=== PATIENT | female | born 1955 | race Caucasian/White ===

== ENCOUNTER 2016-08-01 22:08 | Inpatient (IN) | payer MEDICARE, OTHER ==
[~2016-08-01] VITALS: Ht 160 cm; Wt 62.6 kg
[~2016-08-01 22:08] MED LIST: SIMV20TA2 PO
--- NOTE | 2016-08-01 22:15 | NUR ---
PT PRESENTS TO ER C/O MIDSTERNAL CHEST PRESSURE RADIATING TO L ARM X1HR PADDER CUSHION, ALSO C/O JOSÉ LEG NUMBNESS. PT APPEARS VERY ANXIOUS, EYES WATERY, BREATHING DEEPLY, SHAKY. DENIES SOB OR RESP DISTRESS. SKIN WARM NONDIAPHORETIC. APPEARS IN NO ACUTE DISTRESS. IN ER BED 09 ON MONITOR.
--- NOTE | 2016-08-01 23:36 | NUR ---
PT AMBULATED TO RESTROOM WITH STEADY GAIT. PT REPORTS SHE FEELS "MUCH BETTER" NOW.
[2016-08-02] MEDS ORDERED: NITROGLYCERIN PACKET 1 GM PACKET TD ONE (00:30)
[2016-08-02] MEDS ORDERED: LORAZEPAM INJ 2 MG/ML VIAL IV ONE (00:30)
[2016-08-02] MEDS ORDERED: ASPIRIN 81 MG TAB.CHEW PO ONE (00:30)
[2016-08-02] MEDS ORDERED: NITROGLYCERIN 0.4 MG/TAB BOTTLE SL ONE (00:30)
[2016-08-02] MEDS ORDERED: NITROGLYCERIN PACKET 1 GM PACKET ONE (00:39)
[2016-08-02] MEDS ORDERED: ASPIRIN 81 MG TAB.CHEW ONE (00:39)
[2016-08-02] MEDS ORDERED: LORAZEPAM INJ 2 MG/ML VIAL ONE (00:47)
[2016-08-02 00:51] LABS: BASOPHILS # (AUTO) 0.1 /CMM (0.0-0.2); BASOPHILS % (AUTO) 0.9 % (0.0-2.0); EOSINOPHILS # (AUTO) 0.2 /CMM (0.0-0.7); EOSINOPHILS % (AUTO) 2.9 % (0.0-6.0); HEMATOCRIT 34 % (33-45); HEMOGLOBIN 11.1 g/dL (11.5-14.8); LYMPHOCYTES # (AUTO) 2.5 /CMM (0.8-4.8); LYMPHOCYTES % (AUTO) 40.4 % (20.0-44.0); MEAN CORPUSCULAR HEMOGLOBIN 26 PG (26.0-33.0); MEAN CORPUSCULAR HGB CONC 32 g/dl (31.0-36.0); MEAN CORPUSCULAR VOLUME 79 fL (82-100); MONOCYTES # (AUTO) 0.3 /CMM (0.1-1.30); MONOCYTES % (AUTO) 4.4 % (2.0-12.0); NEUTROPHILS # (AUTO) 3.2 /CMM (1.8-8.9); NEUTROPHILS % (AUTO) 51.4 % (43.0-81.0); PLATELET COUNT (AUTO) 278 /CMM (150-450); RDW COEFFICIENT OF VARIATION 13.8 (11.5-15.0); RED BLOOD CELL COUNT(AUTO) 4.35 MIL/uL (4.0-5.2); WHITE BLOOD COUNT (AUTO) 6.3 K/uL (4.3-11.0)
--- NOTE | 2016-08-02 01:01 | NUR ---
CALLED NURSING SECTION CHIEF FOR TELE BED
[2016-08-02 01:02] LABS: CALCIUM, SERUM 8.1 mg/dL (8.5-10.1); CARBON DIOXIDE 27 mmol/L (21-32); CHLORIDE 108 mmol/L (98-107); CREATININE 0.7 mg/dL (0.6-1.3); GFR 85 mL/min (>60); GLUCOSE 111 mg/dL (74-106); POTASSIUM 3.2 mmol/L (3.5-5.1); SODIUM SERUM 141 mmol/L (136-145); UREA NITROGEN, BLOOD 9 mg/dL (7-18)
--- NOTE | 2016-08-02 01:03 | NUR ---
IV ACCESS ESTABLISHED. ASPIRIN, LORAZEPAM, AND NITRO PASTE ADMINISTERED ORDERED. PT DENIES CP, TIGHTNESS, OR PRESSURE AT THIS TIME. NAD NOTED. MD NOTIFIED. PER MD, DO NOT ADMINISTER NITRO SL UNLESS PT C/O CP.
[2016-08-02 01:13] LABS: TROPONIN I < 0.017 ng/mL (0.00-0.056)
[2016-08-02 01:14] LABS: ALANINE AMINOTRANSFERASE 19 U/L (12-78); ALBUMIN 3.3 g/dL (3.4-5.0); ALKALINE PHOSPHATASE 59 U/L (46-116); ASPARTATE AMINOTRANSFERASE 17 U/L (15-37); B-TYPE NATRIURETIC PEPTIDE 122 PG/ML (0-125); BILIRUBIN,TOTAL 0.2 mg/dL (0.2-1.0); TOTAL PROTEIN, SERUM 6.7 g/dL (6.4-8.2)
--- NOTE | 2016-08-02 01:33 | NUR ---
DR ROBERT ON PHONE WITH LARA SOUSA NP
--- NOTE | 2016-08-02 01:34 | NUR ---
REPORT GIVEN TO ODETTE HADDAD FOR ADMISSION.
--- NOTE | 2016-08-02 01:34 | NUR ---
RN REPORT RECEIVED REPORT FROM [facility] MANUFA[employer]URED BUILDINGS REPAIRER FOR CONTINUITY OF CARE. AWAITING PT ARRIVAL.
--- NOTE | 2016-08-02 01:43 | NUR ---
RN INITIAL NOTE RECEIVED PT IN NO ACUTE DISTRESS IN BED. PT IS A/O X 4 AND ABLE TO MAKE NEEDS KNOWN. PT IS ON RA AND TOLERATING WELL WITH O2 SAT @ 98%. PT NOT C/O ANY SOB, DIFFICULTY BREATHING OR CHEST PAIN. PT STATED SHE HAS A HEADACHE. PAIN MANAGEMENT INITIATED AND CARRIED OUT. PT HAS LFA 20G THAT IS CLEAN DRY INTACT AND PATENT WITH SALINE FLUSH. BED IN LOW LOCK POSITION WITH RIALS UP X 2. CALL LIGHT WITHIN REACH AND ALL SAFETY MEASURES ENSURED AND CARRIED OUT. WILL CONTINUE TO MONITOR PT.
--- NOTE | 2016-08-02 01:43 | NUR ---
PT TRANSPORTED TO TELE1 IN STABLE CONDITION VIA ACLS PROTOCOL
[2016-08-02 01:55] VITALS: BP 139/81
[2016-08-02] MEDS ORDERED: ONDANSETRON HCL/PF 4 MG/2 ML VIAL IVP PRN (02:30)
[2016-08-02] MEDS ORDERED: NITROGLYCERIN 0.4 MG/TAB BOTTLE SL PRN (02:30)
[2016-08-02] MEDS ORDERED: Z GUARD REMEDY 2 OZ OINT TP PRN (02:30)
[2016-08-02] MEDS ORDERED: MAG HYDROX/AL HYDROX/SIMETH 30 ML UDC PO PRN (02:30)
[2016-08-02] MEDS ORDERED: MAGNESIUM HYDROXIDE 30 ML UDC PO PRN (02:30)
[2016-08-02] MEDS ORDERED: HYDROCODONE/APAP 5/325MG 1 EACH TABLET ONE (02:44)
[2016-08-02] MEDS: HYDROCODONE/APAP 5/325MG 1 EACH TABLET PO PRN ×4 (02:48→18:31)
--- NOTE | 2016-08-02 06:40 | NUR ---
RN CLOSING NOTE PT REMAINS IN NO ACUTE DISTRESS IN BED. PT DID NOT HAVE ANY SIGNIFICANT CHANGE IN CONDITION. WILL ENDORSE TO AM RN FOR CONTINUITY OF CARE.
--- NOTE | 2016-08-02 07:00 | NUR ---
RN NOTE RECEIVED PT ON BED, A/O X 4 AND ABLE TO MAKE NEEDS KNOWN, ON RA NO SOB NOTED, DENIES CHEST PAIN , LFA 20G SITE CLEAN DRY INTACT . BED IN LOW LOCK POSITION WITH RIALS UP X 2. CALL LIGHT WITHIN REACH AND ALL SAFETY MEASURES ENSURED ,CONTINUE TO MONITOR PT. CLOSELY AND NOTIFY MD FOR ANY SIGNIFICANT CHANGES .
[2016-08-02 08:00] VITALS: BP 111/65
[2016-08-02] MEDS ORDERED: PANTOPRAZOLE 40 MG TABLET.DR PO SCH (08:31)
[2016-08-02] MEDS: ASPIRIN 81 MG TAB.CHEW PO SCH (08:37)
[2016-08-02] MEDS: ACETAMINOPHEN 325 MG TABLET PO PRN ×2 (08:37→20:54)
[2016-08-02] MEDS ORDERED: ASPIRIN 81 MG TAB.CHEW PO SCH (10:30)
[2016-08-02] MEDS: CARVEDILOL 12.5 MG TABLET PO SCH ×2 (10:39→20:54)
[2016-08-02 10:56] LABS: THYROID STIMULATING HORMONE 1.18 uIU/mL (0.358-3.74)
[2016-08-02 11:06] LABS: MAGNESIUM 1.8 mg/dL (1.8-2.4); PHOSPHORUS 3.9 mg/dL (2.5-4.9)
[2016-08-02] MEDS: POTASSIUM CHLORIDE 20 MEQ TAB.PRT.SR PO SCH ×3 (11:38→13:27)
[2016-08-02 12:00] VITALS: BP 126/64
--- NOTE | 2016-08-02 14:00 | NUR ---
RN NOTES CONSENT FOR STRESS TEST OBTAINED, PT NOTIFIED REGARDING NPO AFTER MN FOR STRESS TEST .
[2016-08-02 16:00] VITALS: BP 126/64
[2016-08-02] MEDS ORDERED: SIMVASTATIN 20 MG TABLET PO SCH (18:00)
--- NOTE | 2016-08-02 19:02 | NUR ---
RN NOTES PT UP AND WALKING IN THE ROOM ,VSS STABLE , TINO ANY CHEST PAIN AT THIS TIME, MEDICATED PER MD ORDER, NO SIGNIFICANT CHANGES NOTED ON THIS SHIFT .
--- NOTE | 2016-08-02 19:30 | NUR ---
MS HADDAD INITIAL NOTE RECEIVED REPORT DANIEL HADDAD. PT IN BED. A/A/O X4. LUNG SOUNDS CLEAR. BOWEL SOUNDS PRESENT. IV PATENT AND INTACT. PULSES PRESENT. BRP. BED IN LOW LOCKED POSITION. CALL LIGHT WITHIN REACH. WILL CONTINUE TO MONITOR.
[2016-08-02 20:00] VITALS: BP 179/95
[2016-08-03 04:00] VITALS: BP 135/75
[2016-08-03] MEDS: HYDROCODONE/APAP 5/325MG 1 EACH TABLET PO PRN (05:07)
[2016-08-03 07:13] LABS: BASOPHILS % (AUTO) 0.7 % (0.0-2.0); EOSINOPHILS # (AUTO) 0.1 /CMM (0.0-0.7); EOSINOPHILS % (AUTO) 2.4 % (0.0-6.0); HEMATOCRIT 37 % (33-45); HEMOGLOBIN 11.6 g/dL (11.5-14.8); LYMPHOCYTES # (AUTO) 2.4 /CMM (0.8-4.8); LYMPHOCYTES % (AUTO) 40.6 % (20.0-44.0); MEAN CORPUSCULAR HEMOGLOBIN 25 PG (26.0-33.0); MEAN CORPUSCULAR HGB CONC 32 g/dl (31.0-36.0); MEAN CORPUSCULAR VOLUME 79 fL (82-100); MONOCYTES # (AUTO) 0.3 /CMM (0.1-1.30); MONOCYTES % (AUTO) 4.3 % (2.0-12.0); NEUTROPHILS # (AUTO) 3.1 /CMM (1.8-8.9); PLATELET COUNT (AUTO) 302 /CMM (150-450); RDW COEFFICIENT OF VARIATION 14.1 (11.5-15.0); RED BLOOD CELL COUNT(AUTO) 4.63 MIL/uL (4.0-5.2); WHITE BLOOD COUNT (AUTO) 5.9 K/uL (4.3-11.0)
[2016-08-03 07:53] LABS: CALCIUM, SERUM 8.6 mg/dL (8.5-10.1); CREATININE 0.8 mg/dL (0.6-1.3); MAGNESIUM 2.1 mg/dL (1.8-2.4); PHOSPHORUS 4.4 mg/dL (2.5-4.9); POTASSIUM 3.8 mmol/L (3.5-5.1)
[2016-08-03 07:59] LABS: THYROID STIMULATING HORMONE 0.872 uIU/mL (0.358-3.74)
[2016-08-03] MEDS ORDERED: REGADENOSON 0.4 MG/5 ML DISP.SYRIN IVP ONE (10:00)
[2016-08-03] MEDS: ASPIRIN 81 MG TAB.CHEW PO SCH (10:05)
[2016-08-03 10:06] VITALS: BP 151/75
[2016-08-03] MEDS: CARVEDILOL 12.5 MG TABLET PO SCH (10:06)
== END 2016-08-03 16:24 | disposition home or self-care (01) | DRG 206 ==
LOC: ER 22:10 → TELE1 08-02 01:42 → MEDSG1 08-02 11:33
PROVIDERS: ADMIT Contractor; ATTEND Internal Medicine
DX: M94.0 Chondrocostal junction syndrome [Tietze] (principal); E87.6 Hypokalemia; E78.5 Hyperlipidemia, unspecified; F17.210 Nicotine dependence, cigarettes, uncomplicated; F41.9 Anxiety disorder, unspecified; D50.9 Iron deficiency anemia, unspecified
CPT/HCPCS: 36415; 71010-TC; 80048-TC; 80061-TC; 80076-TC; 82306; 82728-TC; 83540-TC; 83735-TC; 83880; 84100-TC; 84439-TC; 84443-TC; 84484-TC; 85025-TC; 85378-TC; 87081-TC; 93307-TC; A4606; A9502; J2060; J2785; Z7610

== ENCOUNTER 2022-02-23 12:04 | Emergency (ER) | payer MEDICARE, OTHER ==
[~2022-02-23] VITALS: Ht 157.5 cm; Wt 52.6 kg
--- NOTE | 2022-02-23 12:15 | NUR ---
TO ER BED 10, BIB RA ASAULTED BY C/O HEAD AND R EYE PAIN, RIGHT SIDE CHEST PAIN- MID AXILLA, R LEG PAIN AND NUMBNESS, AAOX4, BREATHING EVEN AND NON LABORED, CONNECTED TO MONITOR.
[2022-02-23] MEDS ORDERED: ACETAMINOPHEN ES 500 MG TABLET PO ONE (12:30)
[2022-02-23] MEDS ORDERED: ACETAMINOPHEN ES 500 MG TABLET ONE (12:32)
[2022-02-23] MEDS ORDERED: HYDROCODONE/APAP 10/325MG TABLET ONE (12:38)
--- NOTE | 2022-02-23 12:41 | NUR ---
SPOKE WITH [employer] REGISTRATION CLERK [phone] TO FILE A REPORT. OFFICERS ARE ARRIVING SHORTLY TO SPEAK WITH PT.
[2022-02-23] MEDS: HYDROCODONE/APAP 5/325MG TABLET PO ONE ×2 (13:05→13:23)
[2022-02-23] MEDS ORDERED: HYDROCODONE/APAP 10/325MG TABLET PO ONE (13:30)
[2022-02-23] MEDS ORDERED: HYDR-4303 PO (13:40)
--- NOTE | 2022-02-23 13:41 | NUR ---
[employer] UNIT#[id number] AT BEDSIDE
--- NOTE | 2022-02-23 13:48 | NUR ---
Patient discharged to home in stable condition. Written and verbal after care instructions given. Patient verbalizes understanding of instruction.
[2022-02-23 13:51] VITALS: BP 134/84
== END 2022-02-23 13:52 | disposition home or self-care (01) ==
LOC: ER 12:10
DX: S05.11XA Contusion of eyeball and orbital tissues, right eye, initial encounter (principal); S20.211A Contusion of right front wall of thorax, initial encounter; R51.9 Headache, unspecified; F17.200 Nicotine dependence, unspecified, uncomplicated; Z79.899 Other long term (current) drug therapy; Y04.0XXA Assault by unarmed brawl or fight, initial encounter; Y93.89 Activity, other specified; Y92.89 Other specified places as the place of occurrence of the external cause; Y99.8 Other external cause status
CPT/HCPCS: 70450-TC; 70486-TC; 71100-TC